=== PATIENT | female | born 1960 | race Caucasian/White ===

== ENCOUNTER → 2022-03-08 | Outpatient (CLI) | payer OTHER ==
--- NOTE | 2022-03-08 18:26 | Diagnostic Imaging Report ---
EXAMINATION: Right hand, single view. Left third finger, 2 additional views. COMPARISON: None. HISTORY: 61-year-old female, right middle finger pain for 4 months. FINDINGS: There is soft tissue swelling at the level of the third proximal interphalangeal joint. There is no joint space loss. There is no osteophyte formation. There is no bone erosion. There is no periosteal reaction. There is no acute fracture. There is no subluxation or dislocation. IMPRESSION: 1. Soft tissue swelling at the level of the third proximal interphalangeal joint without identified joint space loss or evidence of arthritis. This potentially could reflect synovitis although is not specific. Recommend correlation. 2. No acute osseous abnormality. Dictated by: Dictated on workstation # [id number]
== END ==
LOC: RAD 16:40
PROVIDERS: ATTEND Nurse Practitioner Family
DX: M79.644 Pain in right finger(s) (principal); M25.441 Effusion, right hand
CPT/HCPCS: 73140

== ENCOUNTER → 2022-03-12 | Outpatient (CLI) | payer OTHER ==
--- NOTE | 2022-03-14 13:26 | Diagnostic Imaging Report ---
INDICATION: Routine screening. COMPARISON: 02/06/2019 and 12/18/2017. TECHNIQUE: 2D and 3D bilateral screening mammography was performed with CAD. FINDINGS: Scattered fibroglandular densities are identified bilaterally. The parenchymal pattern is stable. No mass or malignant-appearing microcalcifications are seen. The axillae are unremarkable. IMPRESSION: No mammographic features suspicious for malignancy are identified. ACR BI-RADS Category 1: Negative. Result letter will be mailed to the patient. Note: At least 10% of breast cancer is not imaged by mammography. Dictated by: Dictated on workstation # [id number]
== END ==
LOC: RAD 08:00
PROVIDERS: ATTEND Nurse Practitioner Family
DX: Z12.31 Encounter for screening mammogram for malignant neoplasm of breast (principal); M79.644 Pain in right finger(s)
CPT/HCPCS: 77063; 77067